=== PATIENT | female | born 2005 | race Caucasian/White ===

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

== ENCOUNTER 2023-01-26 11:15 | Emergency (ER) | payer OTHER ==
--- NOTE | 2023-01-26 11:53 | ERPHSYRPT ---
- History of Present Illness Time Seen by Provider: 01/26/23 11:48 Source: patient, family Exam Limitations: no limitations Physician History: pt is 6 months and fell onto right knee now with pain too much to bear weight. Tender on right tibia proximally and effusion present. abrasion , but pt thinks is less than 10 years since update of tetanus and will check with mom today and return if indicated. No abd pain, no bleeding or discharge or contractions. also fell on hands and left knee but these are all nontender with full ROM. and haroldo palpation. N/V intact all distall ext. Abd soft and nontender will check FHT. No peritoneal signs and gravid uterus feels normal. No discharge or bleeding. Normal Neuro exam and mental status. 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 - Review of Systems Constitutional: No Fever, No Chills Eyes: No Symptoms Ears, Nose, & Throat: No Symptoms Respiratory: No Cough, No Dyspnea Cardiac: No Chest Pain, No Edema, No Syncope Abdominal/Gastrointestinal: No Abdominal Pain, No Nausea, No Vomiting, No Diarrhea Genitourinary Symptoms: No Dysuria Musculoskeletal: Injury, Joint Pain, Joint Swelling, No Back Pain, No Neck Pain Skin: No Symptoms, No Rash Neurological: No Dizziness, No Focal Weakness, No Sensory Changes Psychological: No Symptoms Endocrine: No Symptoms Hematologic/Lymphatic: No Symptoms Immunological/Allergic: No Symptoms All Other Systems: Reviewed and Negative - Past Medical History Pertinent Past Medical History: Yes Neurological History: No Pertinent History ENT History: No Pertinent History Cardiac History: No Pertinent History Respiratory History: No Pertinent History Endocrine Medical History: No Pertinent History Musculoskeletal History: No Pertinent History GI Medical History: No Pertinent History History: No Pertinent History, Other Psycho-Social History: Attention Deficit Disorder Female Reproductive Disorders: No Pertinent History Other Medical History: SEEING DR ERICA MELENDEZ IN URINE - Past Surgical History Past Surgical History: Yes Neuro Surgical History: No Pertinent History Cardiac: No Pertinent History Respiratory: No Pertinent History Gastrointestinal: No Pertinent History Genitourinary: No Pertinent History Musculoskeletal: No Pertinent History Female Surgical History: No Pertinent History Other Surgical History: TUBES IN EARS - Social History Smoking Status: Never smoker Exposure to second hand smoke: No Drug Use: none Patient Lives Alone: No - Nursing Vital Signs Nursing Vital Signs: Initial Vital Signs Temperature 98.1 F 01/26/23 11:21 Pulse Rate 83 01/26/23 11:21 Blood Pressure 115/76 01/26/23 11:21 O2 Sat by Pulse Oximetry 99 01/26/23 11:21 Pain Scale Pain Intensity 6 - Physical Exam General Appearance: no apparent distress, alert Eyes, Ears, Nose, Throat Exam: moist mucous membranes Neck Exam: normal inspection, non-tender, supple, full range of motion Cardiovascular/Respiratory Exam: chest non-tender, normal breath sounds, regular rate/rhythm, no respiratory distress Gastrointestinal/Abdominal Exam: non-tender, guarding Back Exam: normal inspection, No vertebral tenderness Hips Exam: bilateral: non-tender, normal inspection, normal range of motion, no evidence of injury Legs Exam: bilateral leg: non-tender, normal inspection, normal range of motion, no evidence of injury Knees Exam: right knee: joint effusion, pain, soft tissue tenderness, swelling, left knee: non-tender, normal inspection, normal range of motion, no evidence of injury Ankle Exam: bilateral ankle: non-tender, normal inspection, normal range of motion, no evidence of injury Foot Exam: bilateral foot: non-tender, normal inspection, normal range of motion, no evidence of injury DTR - Lower Extremities Exam: knee (R): 2+, knee (L): 2+, ankle (R): 2+, ankle (L): 2+ Neuro/Tendon Exam: normal sensation, normal motor functions, normal tendon functions Mental Status Exam: alert, oriented x 3, cooperative Skin Exam: normal color, warm, dry SpO2 Interpretation: normal SpO2: 98 O2 Delivery: Room Air - Course Nursing assessment & vital signs reviewed: Yes - Radiology Exams Right Knee X-ray Interpretation: Reviewed by me, Teleradiologist Report (Also rad reading not certain but could be the tibial fracture so we will immobilize), Other (asking for telerad due to concern for tibial plateau fracture) Ordered Tests: Active Orders 24 hr Category Date Time Status Cold Application STAT Care 01/26/23 11:21 Active Crutches STAT Care 01/26/23 12:44 Active Heart Tones-ED STAT Care 01/26/23 12:19 Active Immobilizer STAT Care 01/26/23 12:44 Active KNEE (3 VIEWS) Stat Exams 01/26/23 11:55 Taken - Progress Progress: improved, re-examined Progress Note: 01/26/23 11:56 discussed risk from radiation/ benefit and purpose of x-ray with pt and and they understand and wish to consent and have the capacity to make this choice. . 01/26/23 12:25 FHT are 132. Counseled pt/family regarding: diagnosis, need for follow-up, rad results Medical Desision Making - Independent Historian Additional History obtained from: Spouse - Discussion of managment Care discussed with:: specialist (radiologist) Reviewed:: Test results, Need for additional workup - Departure Departure Disposition: Home Clinical Impression: Injury of ligament of right knee Condition: Good Critical Care Time: No Referrals: GISELLA WIGGINS MD [Primary Care Provider] - Follow up/PCP as directed Instructions: Tibial Plateau Fracture (DC), Knee Sprain (DC), Ligament Injuries in the Knee (DC) Additional Instructions: We are providing information on tibia fracture, although this is not definitely seen on the x-ray today, this injury can manifest later and can take time to be seen on x-ray. The initial treatment is the same as ligament injuries which you probably do have to some degree. Use the splint and crutches and keep the knee elevated also using ice intermittently and tylenol for pain. Arrange to follow-up with an Orthopedic Dr. by calling this week. Keep alert also to any pain or cramping in your stomach or bleeding down below. Remember to confirm your tetanus shot status with your mom , in case it needs to be updated from the abrasions. Return meantime if any symptoms of concern.
[2023-01-26 12:48] VITALS: O2SAT 98
--- NOTE | 2023-01-26 13:10 | XRAY ---
CLINICAL HISTORY:trauma right knee COMPARISON:None; TECHNIQUES:X-ray of the right knee showing 3 views: AP, oblique and lateral views. FINDINGS: No fracture, dislocation, or soft tissue swelling is noted. Normal bony and soft tissue densities. No lytic or sclerotic bony lesion is noted. No degenerative changes are seen. IMPRESSION: Unremarkable x-ray of the right knee. Incidental, partially visualized proximal tibia lucent line is noted. Hairline fracture cannot be excluded. Further evaluation with calf region Xrays is recommended. DISCLAIMER: A subtle bone abnormality or fracture may not be readily apparent on x-rays, thus clinical correlation and further imaging including follow up CT, MRI, or follow up x-rays are advised as needed. Electronically Signed by: Britta Guadarrama MD. (01/26/2023 12:05:25 CLASSROOM INSTRUCTIONAL AIDE)
[2023-01-26 13:27] VITALS: BP 113/74; PULSE 68
== END 2023-01-26 13:31 | disposition home or self-care (01) ==
LOC: ED 11:15
DX: S83.91XA Sprain of unspecified site of right knee, initial encounter (principal); W19.XXXA Unspecified fall, initial encounter; Z33.1 Pregnant state, incidental
CPT/HCPCS: 73562; 99283; L1830

== ENCOUNTER 2023-03-18 11:00 | Emergency (ER) | payer MEDICAID ==
[2023-03-18] MEDS ORDERED: Sodium Chloride 0.9% 1000 ML 1,000 ML IV STA (11:46)
[2023-03-18] MEDS ORDERED: Sodium Chloride 0.9% 1000 ML 1,000 ML ONE (11:48)
--- NOTE | 2023-03-18 12:21 | ERPHSYRPT ---
- History of Present Illness Source: patient Exam Limitations: no limitations Patient Subjective Stated Complaint: Dizziness/HTN-29 weeks Triage Nursing Assessment: Patient ambulated back to ED and Physician History: 17 yo WF 19 wks ([id number]) presents w nausea/vomiting earlier today accompanied by dizziness which has since resolved. Pt came to the ER from work. She denies headache/focal weakness/chest pain/dyspnea/dysuria/hem aturia/abdominal-pelvic pain/vag bleeding/vag discharge. Timing/Duration: other (6AM) Severity: mild Modifying Factors: Improves With: nothing Associated Symptoms: denies symptoms, nausea, vomiting Allergies/Adverse Reactions: venom-wasp Allergy (Verified 03/18/23 11:27) Hx Tetanus, Diphtheria Vaccination/Date Given: Yes Hx Influenza Vaccination/Date Given: No Hx Pneumococcal Vaccination/Date Given: No Travel Risk - International Travel Have you traveled outside of the country in past 3 weeks: No - Coronavirus Screening Are you exhibiting any of the following symptoms?: No Close contact with a COVID-19 positive Pt in past 14-21 Days: No - Vaccine Status Have you recieved a Covid-19 vaccination: Yes 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[facility] - Vaccination Dates Date of 2cond Vaccination (if applicable): na - Review of Systems Constitutional: No Symptoms Eyes: No Symptoms Ears, Nose, & Throat: No Symptoms Respiratory: No Symptoms Cardiac: No Symptoms Abdominal/Gastrointestinal: No Symptoms, Nausea, Vomiting Genitourinary Symptoms: No Symptoms Musculoskeletal: No Symptoms Skin: No Symptoms Neurological: No Symptoms, Dizziness Psychological: No Symptoms Endocrine: No Symptoms Hematologic/Lymphatic: No Symptoms Immunological/Allergic: No Symptoms - Past Medical History Pertinent Past Medical History: Yes Neurological History: No Pertinent History ENT History: No Pertinent History Cardiac History: No Pertinent History Respiratory History: No Pertinent History Endocrine Medical History: No Pertinent History Musculoskeletal History: No Pertinent History GI Medical History: No Pertinent History History: No Pertinent History, Other Psycho-Social History: Attention Deficit Disorder Female Reproductive Disorders: No Pertinent History Other Medical History: SEEING DR ERICA MELENDEZ IN URINE. Herpes - Past Surgical History Past Surgical History: Yes Neuro Surgical History: No Pertinent History Cardiac: No Pertinent History Respiratory: No Pertinent History Gastrointestinal: No Pertinent History Genitourinary: No Pertinent History Musculoskeletal: No Pertinent History Female Surgical History: No Pertinent History Other Surgical History: TUBES IN EARS - Social History Smoking Status: Never smoker Exposure to second hand smoke: No Drug Use: none Patient Lives Alone: No - Female History Hx Last Menstrual Period: August 21, 2023 Hx Now: Yes Gestational Age: 29 weeks - Nursing Vital Signs Nursing Vital Signs: Initial Vital Signs Temperature 96.7 F 03/18/23 11:30 Pulse Rate 77 03/18/23 11:30 Respiratory Rate 18 03/18/23 11:30 Blood Pressure 133/93 03/18/23 11:30 O2 Sat by Pulse Oximetry 99 03/18/23 11:30 Pain Scale Pain Intensity 0 Mildly hypertensive - Physical Exam General Appearance: no apparent distress Eye Exam: PERRL/EOMI, eyes nml inspection Ears, Nose, Throat Exam: normal ENT inspection, TMs normal, pharynx normal, moist mucous membranes Neck Exam: normal inspection, non-tender, supple, full range of motion, No meningismus, No mass, No Brudzinski, No Kernig's Respiratory Exam: normal breath sounds, lungs clear, airway intact Cardiovascular Exam: regular rate/rhythm, normal heart sounds, normal peripheral pulses, capillary refill <2 sec, No murmur Gastrointestinal/Abdomen Exam: soft, normal bowel sounds, No tenderness Back Exam: normal inspection, normal range of motion, No CVA tenderness, No vertebral tenderness Extremity Exam: normal inspection, normal range of motion Neurologic Exam: alert, oriented x 3, cooperative, lead cook II-XII nml as tested, normal mood/affect, nml cerebellar function, nml station & gait, sensation nml Skin Exam: normal color, warm, dry, No rash Lymphatic Exam: No adenopathy SpO2 Interpretation: normal SpO2: 98 O2 Delivery: Room Air - Course Nursing assessment & vital signs reviewed: Yes EKG Interpreted by Me: RATE (NSR/Rate 74/Normal QT-QTc/Low voltage/Non-specific Twave abnormality) Ordered Tests: Active Orders 24 hr Category Date Time Status EKG-ER Only STAT Care 03/18/23 11:47 Completed CBC W DIFF Stat Lab 03/18/23 12:20 Completed CMP Stat Lab 03/18/23 12:20 Completed TROPONIN Q4H Lab 03/18/23 12:20 Completed TROPONIN Q4H Lab 03/18/23 16:00 Ordered TROPONIN Q4H Lab 03/18/23 20:00 Ordered UA W/RFX UR CULTURE Stat Lab 03/18/23 11:48 Completed Medication Summary Discontinued Medications Generic Name Dose Route Start Last Admin Trade Name Jovan PRN Reason Stop Dose Admin Sodium Chloride 1,000 mls @ 999 mls/hr 03/18/23 11:46 03/18/23 12:50 Sodium Chloride 0.9% 1000 Ml IV 03/18/23 12:46 Infused .Q1H1M STA Infusion Sodium Chloride Confirm 03/18/23 11:48 Sodium Chloride 0.9% 1000 Ml Administered 03/18/23 11:49 Dose 1,000 mls @ ud .ROUTE .STK-MED ONE Lab/Rad Data: Laboratory Result Diagrams 03/18/23 12:20 03/18/23 12:20 Laboratory Results 03/18/23 03/18/23 03/18/23 Range/Units 12:20 12:20 12:20 WBC 9.8 (4.0-10.5) x10^3/uL RBC 3.49 L (4.1-5.4) x10^6/uL Hgb 10.7 L (12.0-16.0) g/dL Hct 32.6 L (35-47) % MCV 93.4 (78-100) fL MCH 30.7 (26-32) pg MCHC 32.8 (32-36) g/dL RDW 13.0 (11.5-14.0) % Plt Count 227 (150-450) x10^3/uL MPV 10.5 (7.5-11.0) fL Gran % 72.8 H (36.0-66.0) % Immature Gran % (Auto) 0.4 (0.00-0.4) % Nucleat RBC Rel Count 0.0 (0.00-0.1) % Eos # (Auto) 0.06 (0-0.5) x10^3/uL Immature Gran # (Auto) 0.04 H (0.00-0.03) x10^3u/L Absolute Lymphs (auto) 1.97 (1.0-4.6) x10^3/uL Absolute Monos (auto) 0.58 (0.0-1.3) x10^3/uL Absolute Nucleated RBC 0.00 (0.00-0.01) x10^3u/L Lymphocytes % 20.1 L (24.0-44.0) % Monocytes % 5.9 (0.0-12.0) % Eosinophils % 0.6 (0.00-5.0) % Basophils % 0.2 (0.0-0.4) % Absolute Granulocytes 7.12 H (1.4-6.9) x10^3/uL Basophils # 0.02 (0-0.4) x10^3/uL Sodium 136 L (137-145) mmol/L Potassium 3.6 (3.5-5.1) mmol/L Chloride 107 (98-107) mmol/L Carbon Dioxide 21 L (22-30) mmol/L Anion Gap 12.0 (5-15) MEQ/L BUN 4 L (7-17) mg/dL Creatinine 0.38 L (0.52-1.04) mg/dL Estimated GFR > 60.0 ML/MIN Glucose 79 (74-106) mg/dL Calcium 8.8 (8.4-10.2) mg/dL Total Bilirubin 0.50 (0.2-1.3) mg/dL AST 20 (14-36) U/L ALT 13 (0-35) U/L Alkaline Phosphatase 104 (38-126) U/L Troponin I < 0.012 (0.000-0.034) ng/mL Serum Total Protein 7.1 (6.3-8.2) g/dL Albumin 3.6 (3.5-5.0) g/dL Urine Color (Yellow) Urine Appearance (Clear) Urine pH (4.6-8.0) Ur Specific [place] (1.005-1.030) Urine Protein (Negative) Urine Glucose (UA) (Negative) mg/dL Urine Ketones (Negative) Urine Blood (Negative) Urine Nitrite (Negative) Urine Bilirubin (Negative) Urine Urobilinogen (0.2) mg/dL Ur Leukocyte Esterase (Negative) U Hyaline Cast (Auto) (0-2) /LPF Urine Microscopic RBC (0-5) /HPF Urine Microscopic WBC (0-5) /HPF Ur Epithelial Cells (None Seen) /HPF Urine Bacteria (None Seen) /HPF Urine Culture Reflexed (NO) 03/18/23 Range/Units 11:48 WBC (4.0-10.5) x10^3/uL RBC (4.1-5.4) x10^6/uL Hgb (12.0-16.0) g/dL Hct (35-47) % MCV (78-100) fL MCH (26-32) pg MCHC (32-36) g/dL RDW (11.5-14.0) % Plt Count (150-450) x10^3/uL MPV (7.5-11.0) fL Gran % (36.0-66.0) % Immature Gran % (Auto) (0.00-0.4) % Nucleat RBC Rel Count (0.00-0.1) % Eos # (Auto) (0-0.5) x10^3/uL Immature Gran # (Auto) (0.00-0.03) x10^3u/L Absolute Lymphs (auto) (1.0-4.6) x10^3/uL Absolute Monos (auto) (0.0-1.3) x10^3/uL Absolute Nucleated RBC (0.00-0.01) x10^3u/L Lymphocytes % (24.0-44.0) % Monocytes % (0.0-12.0) % Eosinophils % (0.00-5.0) % Basophils % (0.0-0.4) % Absolute Granulocytes (1.4-6.9) x10^3/uL Basophils # (0-0.4) x10^3/uL Sodium (137-145) mmol/L Potassium (3.5-5.1) mmol/L Chloride (98-107) mmol/L Carbon Dioxide (22-30) mmol/L Anion Gap (5-15) MEQ/L BUN (7-17) mg/dL Creatinine (0.52-1.04) mg/dL Estimated GFR ML/MIN Glucose (74-106) mg/dL Calcium (8.4-10.2) mg/dL Total Bilirubin (0.2-1.3) mg/dL AST (14-36) U/L ALT (0-35) U/L Alkaline Phosphatase (38-126) U/L Troponin I (0.000-0.034) ng/mL Serum Total Protein (6.3-8.2) g/dL Albumin (3.5-5.0) g/dL Urine Color Yellow (Yellow) Urine Appearance Clear (Clear) Urine pH 7.5 (4.6-8.0) Ur Specific [place] <=1.005 (1.005-1.030) Urine Protein Negative (Negative) Urine Glucose (UA) Negative (Negative) mg/dL Urine Ketones Negative (Negative) Urine Blood Negative (Negative) Urine Nitrite Negative (Negative) Urine Bilirubin Negative (Negative) Urine Urobilinogen 0.2 (0.2) mg/dL Ur Leukocyte Esterase Trace A (Negative) U Hyaline Cast (Auto) NONE SEEN (0-2) /LPF Urine Microscopic RBC 0-2 (0-5) /HPF Urine Microscopic WBC 3-5 (0-5) /HPF Ur Epithelial Cells Moderate A (None Seen) /HPF Urine Bacteria Few A (None Seen) /HPF Urine Culture Reflexed NO (NO) - Progress Progress Note: 03/18/23 15:35 Nursing note and vital signs reviewed No food or housing insecurities noted All lab results reviewed and shared w pt 03/18/23 15:36 1L NS bolus Serial neuro exams WNL No dizziness/nausea/vomiting/chest pain/dyspnea while in ER FHT wnl 03/18/23 15:38 Counseled pt/family regarding: lab results, diagnosis, need for follow-up Medical Desision Making - Risk of complications Low Risk: Low risk of morbidity from additional dx testing or treatment - Departure Departure Disposition: Home Clinical Impression: UTI (urinary tract infection), Nausea & vomiting, Dizziness Condition: Stable Critical Care Time: No Referrals: GISELLA WIGGINS MD [Primary Care Provider] - Follow up/PCP as directed Instructions: Hyperemesis Gravidarum (DC), Nausea and Vomiting, Adult (DC), Dizziness, Nonvertigo, (DC) Additional Instructions: Follow up with your Ob Fluids Rest Return to ER as needed Forms: Work/School Release Form Prescriptions: Nitrofurantoin Monohyd/M-Cryst [Macrobid 100 mg Capsule] 100 mg PO BID 3 Days #6 cap
[2023-03-18 12:26] LABS: Absolute Neutrophil Ct (ANC) 7.12 x10^3/uL (1.4-6.9); BASOPHIL % 0.2 % (0.0-0.4); Basophil (Absolute #) 0.02 x10^3/uL (0-0.4); Eosinophil % 0.6 % (0.00-5.0); Eosinophil (Absolute #) 0.06 x10^3/uL (0-0.5); Hematocrit 32.6 % (35-47); Hemoglobin 10.7 g/dL (12.0-16.0); IMMATURE GRAN # 0.04 x10^3u/L (0.00-0.03); IMMATURE GRAN % 0.4 % (0.00-0.4); Lymphocyte (Absolute #) 1.97 x10^3/uL (1.0-4.6); Lymphocytes % 20.1 % (24.0-44.0); Mean Cell Volume 93.4 fL (78-100); Mean Corpuscular Hemoglobin 30.7 pg (26-32); Mean Corpuscular Hgb Concent. 32.8 g/dL (32-36); Mean Platelet Volume 10.5 fL (7.5-11.0); Monocyte (Absolute #) 0.58 x10^3/uL (0.0-1.3); Monocytes % 5.9 % (0.0-12.0); Neutrophil % 72.8 % (36.0-66.0); Platelet Count 227 x10^3/uL (150-450); Red Blood Count 3.49 x10^6/uL (4.1-5.4); White Blood Count 9.8 x10^3/uL (4.0-10.5)
[2023-03-18 12:33] LABS: Appearance Clear (Clear); Bacteria Few /HPF (None Seen); Bilirubin Negative (Negative); Blood Negative (Negative); Epithelial Cells Moderate /HPF (None Seen); Glucose, Urine Negative (Negative); Hyaline Casts NONE SEEN /LPF (0-2); Ketones Negative (Negative); Leukocyte Esterase Trace (Negative); Nitrite Negative (Negative); Ph 7.5 (4.6-8.0); Protein,Urine Dip Negative (Negative); RBC 0-2 /HPF (0-5); Specific Gravity <=1.005 (1.005-1.030); Urobilinogen 0.2 mg/dL (0.2)
[2023-03-18 12:35] LABS: ADD URINE CULTURE? NO (NO)
[2023-03-18 12:38] LABS: ALBUMIN 3.6 g/dL (3.5-5.0); ALKALINE PHOSPHATASE 104 U/L (38-126); BLOOD UREA NITROGEN 4 mg/dL (7-17); CHLORIDE 107 mmol/L (98-107); Calcium 8.8 mg/dL (8.4-10.2); Carbon Dioxide 21 mmol/L (22-30); Creatinine 1 0.38 mg/dL (0.52-1.04); EST GLOMERULAR FILTRATION RATE > 60.0 ML/MIN; Glucose 79 mg/dL (74-106); Potassium 3.6 mmol/L (3.5-5.1); SGOT/AST 20 U/L (14-36); SGPT/ALT 13 U/L (0-35); SODIUM 136 mmol/L (137-145); Total Protein 7.1 g/dL (6.3-8.2)
[2023-03-18 13:02] VITALS: BP 100/74; PULSE 62
[2023-03-18 13:24] VITALS: O2SAT 98
== END 2023-03-18 13:30 | disposition home or self-care (01) ==
LOC: ED 11:00
DX: O23.42 Unspecified infection of urinary tract in pregnancy, second trimester (principal); N39.0 Urinary tract infection, site not specified; Z3A.19 19 weeks gestation of pregnancy; O21.9 Vomiting of pregnancy, unspecified; R42 Dizziness and giddiness
CPT/HCPCS: 36000; 36415; 80053; 81001; 84484; 85025; 93005; 96360; 99284

== ENCOUNTER 2023-03-20 20:39 | Observation (INO) | payer MEDICAID, OTHER ==
[2023-03-20 21:06] LABS: Appearance Clear (Clear); Bacteria Moderate /HPF (None Seen); Bilirubin Negative (Negative); Blood Negative (Negative); Epithelial Cells Moderate /HPF (None Seen); Glucose, Urine Negative (Negative); Hyaline Casts NONE SEEN /LPF (0-2); Ketones Negative (Negative); Leukocyte Esterase Trace (Negative); Nitrite Negative (Negative); Ph 7.5 (4.6-8.0); Protein,Urine Dip Negative (Negative); RBC 0-2 /HPF (0-5)
[2023-03-20 21:07] LABS: ADD URINE CULTURE? YES (NO)
[2023-03-20 21:11] VITALS: O2SAT 99
[2023-03-20 21:12] VITALS: BP 108/65; PULSE 66
[2023-03-20 21:14] LABS: Amphetamine,Urine NEGATIVE (NEGATIVE); Barbiturate,Urine NEGATIVE (NEGATIVE); Benzodiazepine,Urine NEGATIVE (NEGATIVE); Cocaine,Urine NEGATIVE (NEGATIVE); Methadone,Urine NEGATIVE (NEGATIVE); Opiate,Urine NEGATIVE (NEGATIVE); PCP,Urine NEGATIVE (NEGATIVE); THC,Urine POSITIVE (NEGATIVE)
== END 2023-03-20 22:00 | disposition home or self-care (01) ==
LOC: OB 20:39
PROVIDERS: ADMIT Obstetrics & Gynecology; ATTEND Obstetrics & Gynecology
DX: Z34.03 Encounter for supervision of normal first pregnancy, third trimester (principal); Z3A.30 30 weeks gestation of pregnancy
CPT/HCPCS: 80307; 81001; 87086

== ENCOUNTER 2023-03-28 17:54 | Observation (INO) | payer OTHER ==
[2023-03-28 18:43] VITALS: BP 129/76; PULSE 82; RESP 18; TEMP 98.5; O2SAT 98
== END 2023-03-28 19:52 | disposition home or self-care (01) ==
LOC: OB 17:54
PROVIDERS: ADMIT Obstetrics & Gynecology; ATTEND Obstetrics & Gynecology
DX: Z34.03 Encounter for supervision of normal first pregnancy, third trimester (principal); Z3A.31 31 weeks gestation of pregnancy
CPT/HCPCS: G0378; G0379

== ENCOUNTER 2023-05-18 16:16 | Observation (INO) | payer OTHER ==
[2023-05-18 17:14] LABS: Amphetamine,Urine NEGATIVE (NEGATIVE); Barbiturate,Urine NEGATIVE (NEGATIVE); Benzodiazepine,Urine NEGATIVE (NEGATIVE); Cocaine,Urine NEGATIVE (NEGATIVE); Methadone,Urine NEGATIVE (NEGATIVE); Opiate,Urine NEGATIVE (NEGATIVE); PCP,Urine NEGATIVE (NEGATIVE); THC,Urine POSITIVE (NEGATIVE)
[2023-05-18 17:53] VITALS: BP 120/80; PULSE 85; RESP 18; TEMP 98.3; O2SAT 97
== END 2023-05-18 18:15 | disposition home or self-care (01) ==
LOC: OB.NST 16:16 → EDSTATUS 16:29 → OB 16:30
PROVIDERS: ADMIT Family Medicine; ATTEND Family Medicine
DX: Z34.03 Encounter for supervision of normal first pregnancy, third trimester (principal); Z3A.38 38 weeks gestation of pregnancy
CPT/HCPCS: 80307; 83986; 84112; G0378; G0379

== ENCOUNTER 2024-02-26 09:37 | Emergency (ER) | payer OTHER ==
--- NOTE | 2024-02-26 09:41 | ERPHSYRPT ---
- History of Present Illness Time Seen by Provider: 02/26/24 09:41 Source: patient Exam Limitations: no limitations Physician History: This is a 18-year-old white female patient of Dr. Garner who drove herself to the emergency department but states she cannot get a ride home and has a chief complaint of right flank and right lower abdominal pain. She did not fall or monson ve any traumatic injury to these areas. She does states she has some urinary frequency and has had some vomiting. Patient completed treatment for a positive chlamydia in the last week. She completed all of her antibiotic medication. Patient denies chest pain. Patient denies shortness of breath. Timing/Duration: week(s) (1), worse Method of Injury: other (No injury) Quality: sharp, stabbing Back Pain Location: paraspinous muscles (Right lumbar level/flank area) Severity of Pain-Current: moderate Modifying Factors: Improves With: nothing Associated Symptoms: lower back pain Previous symptoms: no prior history, no recent treatment Allergies/Adverse Reactions: venom-wasp Allergy (Verified 02/26/24 09:50) Home Medications: Valacyclovir HCl [Valtrex] 500 mg PO DAILY 02/26/24 [History] Vilazodone HCl 10 mg PO DAILY 02/26/24 [History] Hx Tetanus, Diphtheria Vaccination/Date Given: Yes Hx Influenza Vaccination/Date Given: No Hx Pneumococcal Vaccination/Date Given: No Travel Risk - International Travel Have you traveled outside of the country in past 3 weeks: No - Emerging Infectious Disease Are you exhibiting symptoms associated with any current EIDs: No - Review of Systems Constitutional: No Symptoms Eyes: No Symptoms Ears, Nose, & Throat: No Symptoms Respiratory: No Symptoms Cardiac: No Symptoms Abdominal/Gastrointestinal: Abdominal Pain (Right lower quadrant/right suprapubic region), Nausea, Vomiting, Appetite Changes ( oral intake down), Other (States that she is unable to hold any) Musculoskeletal: Back Pain (Right lumbar level/flank pain area) Skin: No Symptoms Neurological: No Symptoms Psychological: No Symptoms Endocrine: No Symptoms Hematologic/Lymphatic: No Symptoms Immunological/Allergic: No Symptoms All Other Systems: Reviewed and Negative - Past Medical History Pertinent Past Medical History: Yes Neurological History: No Pertinent History ENT History: No Pertinent History Cardiac History: No Pertinent History Respiratory History: Asthma Endocrine Medical History: No Pertinent History, Other Musculoskeletal History: No Pertinent History GI Medical History: No Pertinent History History: No Pertinent History, Other Psycho-Social History: Attention Deficit Disorder Female Reproductive Disorders: No Pertinent History Other Medical History: Hx of hypothryoid diagnosed at beginning of , since then has resolved. Herpes - Past Surgical History Past Surgical History: Yes Neuro Surgical History: No Pertinent History Cardiac: No Pertinent History Respiratory: No Pertinent History Gastrointestinal: No Pertinent History Genitourinary: No Pertinent History Musculoskeletal: No Pertinent History Female Surgical History: No Pertinent History Other Surgical History: TUBES IN EARS - Social History Smoking Status: Current every day smoker How long have you smoked: 2 years Exposure to second hand smoke: No Drug Use: none Patient Lives Alone: No - Social Determinants of Health Will the patient participate in the screening: Yes Do you worry about a steady place to live?: No In the past 12 months,have you had to go without utilities?: No Transportation Issues: No Has anyone in your support network made you feel unsafe?: No Have you or anyone in your house had to go without enough: No - Nursing Vital Signs Nursing Vital Signs: Initial Vital Signs Temperature 98.3 F 02/26/24 09:52 Pulse Rate 60 02/26/24 09:52 Respiratory Rate 18 02/26/24 09:52 Blood Pressure 124/82 02/26/24 09:52 O2 Sat by Pulse Oximetry 99 02/26/24 09:52 Pain Scale Pain Intensity 6 - Physical Exam General Appearance: no apparent distress, alert, anxiety Eye Exam: PERRL/EOMI, eyes nml inspection Ears, Nose, Throat Exam: normal ENT inspection, moist mucous membranes Neck Exam: normal inspection, non-tender, supple, full range of motion Respiratory Exam: normal breath sounds, lungs clear, airway intact, No chest tenderness, No respiratory distress Cardiovascular Exam: regular rate/rhythm, normal heart sounds, normal peripheral pulses Gastrointestinal Exam: soft, normal bowel sounds, tenderness (Right suprapubic tenderness to palpation), guarding (Right suprapubic tenderness to palpation), No rebound Pelvic Exam: not done Rectal Exam: not done Back Exam: normal inspection, normal range of motion, CVA tenderness (Right side to percussion), No vertebral tenderness Extremity Exam: normal inspection, normal range of motion, pelvis stable Neurologic Exam: alert, oriented x 3, cooperative, 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 nml as tested, nml cerebellar function, nml station & gait, sensation nml Skin Exam: normal color, warm, dry Lymphatic Exam: No adenopathy SpO2 Interpretation: normal - Course Nursing assessment & vital signs reviewed: Yes Ordered Tests: Active Orders 24 hr Category Date Time Status IV Insertion STAT Care 02/26/24 10:10 Active ABDOMEN AND PELVIS W/0 CONTRAS [CT] Stat Exams 02/26/24 10:11 Completed AMYLASE Stat Lab 02/26/24 10:05 Completed CBC W DIFF Stat Lab 02/26/24 10:05 Completed CMP Stat Lab 02/26/24 10:05 Completed HCG QUALITATIVE, SERUM Stat Lab 02/26/24 10:05 Completed LIPASE Stat Lab 02/26/24 10:05 Completed UA W/RFX UR CULTURE Stat Lab 02/26/24 11:48 Completed Medication Summary Discontinued Medications Generic Name Dose Route Start Last Admin Trade Name Freq PRN Reason Stop Dose Admin Sodium Chloride 1,000 mls @ 999 mls/hr 02/26/24 10:10 02/26/24 11:32 Sodium Chloride 0.9% 1000 Ml IV 02/26/24 11:10 Infused .Q1H1M STA Infusion Sodium Chloride Confirm 02/26/24 10:14 Sodium Chloride 0.9% 1000 Ml Administered 02/26/24 10:15 Dose 1,000 mls @ ud .ROUTE .STK-MED ONE Ketorolac Tromethamine 30 mg 02/26/24 10:10 02/26/24 10:15 Ketorolac Tromethamine 30 Mg/Ml Inj IV 02/26/24 10:11 30 mg STAT ONE Administration Ketorolac Tromethamine Confirm 02/26/24 10:14 Ketorolac Tromethamine 30 Mg/Ml Inj Administered 02/26/24 10:15 Dose 30 mg .ROUTE .STK-MED ONE Morphine Sulfate 4 mg 02/26/24 13:03 02/26/24 13:18 Morphine Sulfate 4 Mg/Ml Injection IV 02/26/24 13:04 4 mg STAT ONE Administration Morphine Sulfate Confirm 02/26/24 13:16 Morphine Sulfate 4 Mg/Ml Injection Administered 02/26/24 13:17 Dose 4 mg .ROUTE .STK-MED ONE Ondansetron HCl 4 mg 02/26/24 10:10 02/26/24 10:15 Ondansetron Hcl 4 Mg/2 Ml Vial IV 02/26/24 10:11 4 mg STAT ONE Administration Ondansetron HCl Confirm 02/26/24 10:14 Ondansetron Hcl 4 Mg/2 Ml Vial Administered 02/26/24 10:15 Dose 4 mg .ROUTE .K-MED ONE Lab/Rad Data: Laboratory Result Diagrams 02/26/24 10:05 02/26/24 10:05 Laboratory Results 02/26/24 02/26/24 02/26/24 Range/Units 11:48 10:05 10:05 WBC (3.98-10.04) x10^3/uL RBC (3.93-5.22) x10^6/uL Hgb (11.2-15.7) g/dL Hct (34.1-44.9) % MCV (79.4-94.8) fL MCH (25.6-32.2) pg MCHC (32.2-35.5) g/dL RDW (11.7-14.4) % Plt Count (182-369) x10^3/uL MPV (9.4-12.3) fL Gran % (34.0-71.1) % Immature Gran % (Auto) (0.001-0.429) % Nucleat RBC Rel Count (0.00-0.2) % Eos # (Auto) (0.04-0.36) x10^3/uL Immature Gran # (Auto) (0.001-0.031) x10^3u/L Absolute Lymphs (auto) (1.18-3.74) x10^3/uL Absolute Monos (auto) (0.24-0.86) x10^3/uL Absolute Nucleated RBC (0.00-0.012) x10^3u/L Lymphocytes % (19.3-51.7) % Monocytes % (4.7-12.5) % Eosinophils % (0.7-5.8) % Basophils % (0.1-1.2) % Absolute Granulocytes (1.56-6.13) x10^3/uL Basophils # (0.01-0.08) x10^3/uL Sodium 141 (135-145) mmol/L Potassium 3.5 (3.5-5.1) mmol/L Chloride 109 H (98-107) mmol/L Carbon Dioxide 23 (22-30) mmol/L Anion Gap 12.4 (5-15) MEQ/L BUN 10 (7-17) mg/dL Creatinine 0.69 (0.52-1.04) mg/dL Estimated GFR 127.3 ML/MIN Glucose 93 (74-106) mg/dL Calcium 9.8 (8.4-10.2) mg/dL Total Bilirubin 2.60 H (0.2-1.3) mg/dL AST 36 (14-36) U/L ALT 43 H (0-35) U/L Alkaline Phosphatase 80 (38-126) U/L Serum Total Protein 7.5 (6.3-8.2) g/dL Albumin 4.4 (3.5-5.0) g/dL Amylase 68 (30-110) U/L Lipase 49 (23-300) U/L Serum HCG, Qual NEGATIVE (NEGATIVE) Urine Color Yellow (Yellow) Urine Appearance Clear (Clear) Urine pH 6.5 (4.6-8.0) Ur Specific [place] 1.010 (1.005-1.030) Urine Protein Negative (Negative) Urine Glucose (UA) Negative (Negative) mg/dL Urine Ketones 15 A (Negative) Urine Blood Negative (Negative) Urine Nitrite Negative (Negative) Urine Bilirubin Negative (Negative) Urine Urobilinogen 1.0 A (0.2) mg/dL Ur Leukocyte Esterase Negative (Negative) U Hyaline Cast (Auto) NONE SEEN (0-2) /LPF Urine Microscopic RBC 0-2 (0-5) /HPF Urine Microscopic WBC 0-2 (0-5) /HPF Ur Epithelial Cells Rare (None Seen) /HPF Urine Bacteria None Seen (None Seen) /HPF Urine Culture Reflexed NO (NO) 02/26/24 Range/Units 10:05 WBC 4.7 (3.98-10.04) x10^3/uL RBC 4.58 (3.93-5.22) x10^6/uL Hgb 13.3 (11.2-15.7) g/dL Hct 40.2 (34.1-44.9) % MCV 87.8 (79.4-94.8) fL MCH 29.0 (25.6-32.2) pg MCHC 33.1 (32.2-35.5) g/dL RDW 13.2 (11.7-14.4) % Plt Count 224 (182-369) x10^3/uL MPV 10.6 (9.4-12.3) fL Gran % 65.0 (34.0-71.1) % Immature Gran % (Auto) 0.2 (0.001-0.429) % Nucleat RBC Rel Count 0.0 (0.00-0.2) % Eos # (Auto) 0.09 (0.04-0.36) x10^3/uL Immature Gran # (Auto) 0.01 (0.001-0.031) x10^3u/L Absolute Lymphs (auto) 1.19 (1.18-3.74) x10^3/uL Absolute Monos (auto) 0.36 (0.24-0.86) x10^3/uL Absolute Nucleated RBC 0.00 (0.00-0.012) x10^3u/L Lymphocytes % 25.1 (19.3-51.7) % Monocytes % 7.6 (4.7-12.5) % Eosinophils % 1.9 (0.7-5.8) % Basophils % 0.2 (0.1-1.2) % Absolute Granulocytes 3.08 (1.56-6.13) x10^3/uL Basophils # 0.01 (0.01-0.08) x10^3/uL Sodium (135-145) mmol/L Potassium (3.5-5.1) mmol/L Chloride (98-107) mmol/L Carbon Dioxide (22-30) mmol/L Anion Gap (5-15) MEQ/L BUN (7-17) mg/dL Creatinine (0.52-1.04) mg/dL Estimated GFR ML/MIN Glucose (74-106) mg/dL Calcium (8.4-10.2) mg/dL Total Bilirubin (0.2-1.3) mg/dL AST (14-36) U/L ALT (0-35) U/L Alkaline Phosphatase (38-126) U/L Serum Total Protein (6.3-8.2) g/dL Albumin (3.5-5.0) g/dL Amylase (30-110) U/L Lipase (23-300) U/L Serum HCG, Qual (NEGATIVE) Urine Color (Yellow) Urine Appearance (Clear) Urine pH (4.6-8.0) Ur Specific [place] (1.005-1.030) Urine Protein (Negative) Urine Glucose (UA) (Negative) mg/dL Urine Ketones (Negative) Urine Blood (Negative) Urine Nitrite (Negative) Urine Bilirubin (Negative) Urine Urobilinogen (0.2) mg/dL Ur Leukocyte Esterase (Negative) U Hyaline Cast (Auto) (0-2) /LPF Urine Microscopic RBC (0-5) /HPF Urine Microscopic WBC (0-5) /HPF Ur Epithelial Cells (None Seen) /HPF Urine Bacteria (None Seen) /HPF Urine Culture Reflexed (NO) - Progress Progress: improved, pain not gone completely Progress Note: 02/26/24 10:37 Medical decision making and the assignment of moderate complexity to this patient's medical issue is based on review of the patient's past medical history, review the patient's medication list, review of patient drug allergy list, history present illness and physical findings on examination. The workup in this patient includes placement of intravenous line, infusion normal saline solution, infusion of Toradol, infusion of Zofran, infusion of morphine, urinalysis, urine GC/chlamydia, CBC, CMP, amylase, lipase, CT scan of the abdomen pelvis without contrast. Differential diagnosis includes but is not limited to acute appendicitis, pancreatitis, colitis, pyelonephritis, ureterolithiasis 02/26/24 12:12 The urinalysis is pending. The remainder of the laboratory data results were interpreted by me. Patient has a mildly elevated transaminase and bilirubin. The remainder of the studies show no acute, emergent medical issue at this time. CT scan of the abdomen pelvis without contrast was interpreted by the radiologist and I reviewed the interpretation. Interpretation states mild right hydronephrosis without calculus. Possible recent passage of ureteral calculus. There is evidence of cholelithiasis. There is a normal appendix. No free fluid or free air present. 02/26/24 13:21 The urinalysis was interpreted by me. There is no evidence of any urinary tract infection. Patient was mildly dehydrated. Counseled pt/family regarding: lab results, diagnosis, need for follow-up, rad results Medical Desision Making - Diagnostic Testing Diagnostic test were ordered, analyzed, and reviewed by me: Yes Radiological Interpretation: Reviewed by me, Teleradiologist Report - Risk of complications The pt has a mod risk of morbidity or mortality based on: Need for prescription drug management - Departure Departure Disposition: Home Clinical Impression: Cholelithiasis, Right flank pain Condition: Stable Critical Care Time: No Referrals: GISELLA WIGGINS MD [Primary Care Provider] - Follow up/PCP as directed Additional Instructions: Drink plenty of clear liquids before advancing your diet. Avoid fatty greasy spicy foods. Contact your primary care provider today for referral to a general surgeon to discuss management of your gallbladder/gallstones that are present. Use Tylenol and ibuprofen for pain control. Prescriptions: Ondansetron ODT 4 MG [Zofran Odt 4 mg] 4 mg PO Q6H PRN PRN #10 tablet PRN Reason: Vomiting
[2024-02-26 10:00] VITALS: TEMP 98.3
[2024-02-26] MEDS ORDERED: TORAdol 30 mg Injection ONE (10:14)
[2024-02-26] MEDS ORDERED: Zofran 4 MG/2 ML VIAL ONE (10:14)
[2024-02-26] MEDS ORDERED: Sodium Chloride 0.9% 1000 ML 1,000 ML ONE (10:14)
[2024-02-26] MEDS: Zofran 4 MG/2 ML VIAL IV ONE (10:15)
[2024-02-26] MEDS: TORAdol 30 mg Injection IV ONE (10:15)
[2024-02-26] MEDS: Sodium Chloride 0.9% 1000 ML 1,000 ML IV STA (10:16)
[2024-02-26 10:32] LABS: Absolute Neutrophil Ct (ANC) 3.08 x10^3/uL (1.56-6.13); BASOPHIL % 0.2 % (0.1-1.2); Basophil (Absolute #) 0.01 x10^3/uL (0.01-0.08); Eosinophil % 1.9 % (0.7-5.8); Eosinophil (Absolute #) 0.09 x10^3/uL (0.04-0.36); Hematocrit 40.2 % (34.1-44.9); Hemoglobin 13.3 g/dL (11.2-15.7); IMMATURE GRAN # 0.01 x10^3u/L (0.001-0.031); IMMATURE GRAN % 0.2 % (0.001-0.429); Lymphocyte (Absolute #) 1.19 x10^3/uL (1.18-3.74); Lymphocytes % 25.1 % (19.3-51.7); Mean Cell Volume 87.8 fL (79.4-94.8); Mean Corpuscular Hgb Concent. 33.1 g/dL (32.2-35.5); Mean Platelet Volume 10.6 fL (9.4-12.3); Monocyte (Absolute #) 0.36 x10^3/uL (0.24-0.86); Monocytes % 7.6 % (4.7-12.5); Platelet Count 224 x10^3/uL (182-369); Red Blood Count 4.58 x10^6/uL (3.93-5.22); Red Cell Distribution Width 13.2 % (11.7-14.4); White Blood Count 4.7 x10^3/uL (3.98-10.04)
[2024-02-26 10:44] LABS: ALBUMIN 4.4 g/dL (3.5-5.0); ANION GAP 12.4 MEQ/L (5-15); BILIRUBIN,TOTAL 2.6 mg/dL (0.2-1.3); Calcium 9.8 mg/dL (8.4-10.2); Creatinine 1 0.69 mg/dL (0.52-1.04); EST GLOMERULAR FILTRATION RATE 127.3 ML/MIN; Potassium 3.5 mmol/L (3.5-5.1); Total Protein 7.5 g/dL (6.3-8.2)
[2024-02-26 10:47] LABS: HCG SERUM TEST NEGATIVE (NEGATIVE)
--- NOTE | 2024-02-26 11:54 | XRAY ---
Indication: Right flank pain 1 week. Nausea and vomiting. Multiple contiguous axial images obtained through the abdomen and pelvis without contrast using renal stone protocol. Comparison: None Lung bases clear. Heart not enlarged. Right kidney mildly hydronephrotic without renal or ureteral calculus. No renal calculus or evidence for obstructive uropathy on the left. Noncontrasted stomach and bowel loops appear nonobstructed. Normal appendix. Gallbladder demonstrates at least 4 gallstones, largest 1.5 cm. Incidental uterine IUD and tampon in situ. No free fluid/air. Remaining liver, pancreas, spleen, adrenal glands, kidneys, ureters, bladder, uterus, and aorta are unremarkable for noncontrast exam. Osseous structures intact. No ventral or inguinal hernias. Impression: 1. Mild right renal hydronephrosis without calculus. Query recent passage of calculus. 2. Cholelithiasis better evaluated with outpatient ultrasound if clinically warranted. 3. Remaining CT abdomen/pelvis without contrast exam is negative.
[2024-02-26 13:10] LABS: Appearance Clear (Clear); Bacteria None Seen /HPF (None Seen); Bilirubin Negative (Negative); Blood Negative (Negative); Epithelial Cells Rare /HPF (None Seen); Glucose, Urine Negative (Negative); Hyaline Casts NONE SEEN /LPF (0-2); Ketones 15 (Negative); Leukocyte Esterase Negative (Negative); Nitrite Negative (Negative); Ph 6.5 (4.6-8.0); Protein,Urine Dip Negative (Negative); RBC 0-2 /HPF (0-5); WBC 0-2 /HPF (0-5)
[2024-02-26] MEDS ORDERED: MORPHINE SULFATE 4 MG INJ ONE (13:16)
[2024-02-26 13:17] LABS: ADD URINE CULTURE? NO (NO)
[2024-02-26] MEDS: MORPHINE SULFATE 4 MG INJ IV ONE (13:18)
[2024-02-26 13:22] VITALS: BP 110/63; RESP 16
[2024-02-26 14:02] LABS: CHLAMYDIA DNA NOT DETECTED (NEGATIVE); GC DNA Probe NOT DETECTED (NEGATIVE)
[2024-02-26 14:13] VITALS: PULSE 60; O2SAT 98
== END 2024-02-26 14:16 | disposition home or self-care (01) ==
LOC: ED 09:37
DX: K80.20 Calculus of gallbladder without cholecystitis without obstruction (principal); R10.9 Unspecified abdominal pain; R11.2 Nausea with vomiting, unspecified; R35.0 Frequency of micturition; Z79.899 Other long term (current) drug therapy; Z72.0 Tobacco use
CPT/HCPCS: 36000; 36415; 74176; 80053; 81001; 82150; 83690; 84703; 85025; 87491; 87591; 96374; 96375; 99284; J1885; J2270; J2405

== ENCOUNTER 2024-06-19 18:57 | Emergency (ER) | payer OTHER ==
[2024-06-19 19:41] VITALS: RESP 18; TEMP 97.2
--- NOTE | 2024-06-19 20:11 | ERPHSYRPT ---
- History of Present Illness Time Seen by Provider: 06/19/24 19:55 Source: patient Exam Limitations: no limitations Patient Subjective Stated Complaint: pt states that she woke up with a headache. pt states that headache got worse an hour ago Triage Nursing Assessment: pt ambulated into the er; pt is axo x4; c/o headache; pt states 10/10 to head; c/o N/V; pt denies injury or fall to head; pupils 3 mm and PERRL; strong conrad die sinker and pushes; skin PDW; no respiratory distress present; vitals wnl Physician History: This is a 18-year-old white female patient who arrives by private vehicle escorted by a friend whose primary care provider is Dr. Garner and has the complaint of a headache that was relatively localized to the right side this morning. However, prior to arrival, the patient states that she has global hea dache with associated vomiting. There is been no visual changes. She is mildly light sensitive. Patient has no earaches. Patient has no sore throat. Patient has no myalgias or arthralgias. Patient denies cough. She denies chest pain and she denies shortness of breath. Patient did state that the headache was the worst headache she ever had. Patient has a history of attention deficit disord er Timing/Duration: today Head Pain Location: global Severity of Pain-Max: moderate Severity of Pain-Current: moderate Recent Head Trauma: no recent headache/trauma Modifying Factors: Improves With: exposure to light Associated Symptoms: nausea/vomiting, sensitive to light, No neck pain, No stiff neck Previous symptoms: no prior history, no recent treatment Allergies/Adverse Reactions: venom-wasp Allergy (Verified 06/19/24 19:33) Home Medications: Vilazodone HCl 40 mg PO DAILY 06/19/24 [History] Hx Tetanus, Diphtheria Vaccination/Date Given: Yes Hx Influenza Vaccination/Date Given: No Hx Pneumococcal Vaccination/Date Given: No Travel Risk - International Travel Have you traveled outside of the country in past 3 weeks: No - Emerging Infectious Disease Are you exhibiting symptoms associated with any current EIDs: Yes Symptoms: Headaches/Body Aches/, Vomitting - Review of Systems Constitutional: No Symptoms Eyes: No Symptoms Ears, Nose, & Throat: No Symptoms Respiratory: No Symptoms Cardiac: No Symptoms Abdominal/Gastrointestinal: Nausea, Vomiting, No Abdominal Pain, No Diarrhea, No Appetite Changes Musculoskeletal: No Symptoms Skin: No Symptoms Neurological: Headache Psychological: No Symptoms Endocrine: No Symptoms Hematologic/Lymphatic: No Symptoms Immunological/Allergic: No Symptoms All Other Systems: Reviewed and Negative - Past Medical History Pertinent Past Medical History: Yes Neurological History: No Pertinent History ENT History: No Pertinent History Cardiac History: No Pertinent History Respiratory History: Asthma Endocrine Medical History: No Pertinent History, Other Musculoskeletal History: No Pertinent History GI Medical History: No Pertinent History History: No Pertinent History, Other Psycho-Social History: Attention Deficit Disorder Female Reproductive Disorders: No Pertinent History Other Medical History: Hx of hypothryoid diagnosed at beginning of , since then has resolved. Herpes - Past Surgical History Past Surgical History: Yes Neuro Surgical History: No Pertinent History Cardiac: No Pertinent History Respiratory: No Pertinent History Gastrointestinal: No Pertinent History Genitourinary: No Pertinent History Musculoskeletal: No Pertinent History Female Surgical History: No Pertinent History Other Surgical History: TUBES IN EARS - Female History Hx Now: No - Social History Smoking Status: Light tobacco smoker How long have you smoked: 2 years Exposure to second hand smoke: No Drug Use: none Patient Lives Alone: No - Social Determinants of Health Will the patient participate in the screening: Yes Do you worry about a steady place to live?: No Do you have any problems with any of the following?: No known problems In the past 12 months,have you had to go without utilities?: No Transportation Issues: No Has anyone in your support network made you feel unsafe?: No Have you or anyone in your house had to go without enough: No - Nursing Vital Signs Nursing Vital Signs: Initial Vital Signs Temperature 97.2 F 06/19/24 19:35 Pulse Rate 70 06/19/24 19:35 Respiratory Rate 18 06/19/24 19:35 Blood Pressure 130/83 06/19/24 19:35 O2 Sat by Pulse Oximetry 99 06/19/24 19:35 Pain Scale Pain Intensity 7 - Physical Exam General Appearance: mild distress, alert, anxiety Eye Exam: PERRL/EOMI, eyes nml inspection Ears, Nose, Throat Exam: normal ENT inspection, moist mucous membranes Neck Exam: normal inspection, non-tender, supple, full range of motion Respiratory Exam: normal breath sounds, lungs clear, airway intact, No chest tenderness, No respiratory distress Cardiovascular Exam: regular rate/rhythm, normal heart sounds, normal peripheral pulses Gastrointestinal/Abdominal Exam: soft, normal bowel sounds, No tenderness Back Exam: normal inspection, normal range of motion, No CVA tenderness, No vertebral tenderness Extremity Exam: normal inspection, normal range of motion, pelvis stable Mental Status Exam: alert, oriented x 3, cooperative falsework builder Exam: normal hearing, normal speech, PERRL, tongue midline Coordination/Gait Exam: normal gait, normal cerebellar function Motor/Sensory Exam: no motor deficit, no sensory deficit Skin Exam: normal color, warm, dry Lymphatic Exam: No adenopathy SpO2 Interpretation: normal SpO2: 99 O2 Delivery: Room Air - Course Nursing assessment & vital signs reviewed: Yes Ordered Tests: Active Orders 24 hr Category Date Time Status IV Insertion STAT Care 06/19/24 20:17 Active HEAD WITHOUT CONTRAST [CT] Stat Exams 06/19/24 20:31 Completed CBC W DIFF Stat Lab 06/19/24 20:50 Completed CMP Stat Lab 06/19/24 20:50 Completed HCG QUALITATIVE, SERUM Stat Lab 06/19/24 20:50 Completed MONO SCREEN Stat Lab 06/19/24 20:00 Completed UA W/RFX UR CULTURE Stat Lab 06/19/24 21:39 Completed Medication Summary Discontinued Medications Generic Name Dose Route Start Last Admin Trade Name Freq PRN Reason Stop Dose Admin Sodium Chloride 1,000 mls @ 999 mls/hr 06/19/24 20:30 06/19/24 21:48 Sodium Chloride 0.9% 1000 Ml IV 06/19/24 21:30 Infused .Q1H1M STA Infusion Sodium Chloride Confirm 06/19/24 20:34 Sodium Chloride 0.9% 1000 Ml Administered 06/19/24 20:35 Dose 1,000 mls @ ud .ROUTE .STK-MED ONE Ondansetron HCl 4 mg 06/19/24 20:31 06/19/24 20:36 Ondansetron Hcl 4 Mg/2 Ml Vial IV 06/19/24 20:32 4 mg STAT ONE Administration Ondansetron HCl Confirm 06/19/24 20:34 Ondansetron Hcl 4 Mg/2 Ml Vial Administered 06/19/24 20:35 Dose 4 mg .ROUTE .STK-MED ONE Lab/Rad Data: Laboratory Result Diagrams 06/19/24 20:50 06/19/24 20:50 Laboratory Results 06/19/24 06/19/24 06/19/24 Range/Units 21:39 20:50 20:50 WBC (3.98-10.04) x10^3/uL RBC (3.93-5.22) x10^6/uL Hgb (11.2-15.7) g/dL Hct (34.1-44.9) % MCV (79.4-94.8) fL MCH (25.6-32.2) pg MCHC (32.2-35.5) g/dL RDW (11.7-14.4) % Plt Count (182-369) x10^3/uL MPV (9.4-12.3) fL Gran % (34.0-71.1) % Immature Gran % (Auto) (0.001-0.429) % Nucleat RBC Rel Count (0.00-0.2) % Eos # (Auto) (0.04-0.36) x10^3/uL Immature Gran # (Auto) (0.001-0.031) x10^3u/L Absolute Lymphs (auto) (1.18-3.74) x10^3/uL Absolute Monos (auto) (0.24-0.86) x10^3/uL Absolute Nucleated RBC (0.00-0.012) x10^3u/L Lymphocytes % (19.3-51.7) % Monocytes % (4.7-12.5) % Eosinophils % (0.7-5.8) % Basophils % (0.1-1.2) % Absolute Granulocytes (1.56-6.13) x10^3/uL Basophils # (0.01-0.08) x10^3/uL Sodium (135-145) mmol/L Potassium (3.5-5.1) mmol/L Chloride (98-107) mmol/L Carbon Dioxide (22-30) mmol/L Anion Gap (5-15) MEQ/L BUN (7-17) mg/dL Creatinine (0.52-1.04) mg/dL Estimated GFR ML/MIN Glucose (74-106) mg/dL Calcium (8.4-10.2) mg/dL Total Bilirubin (0.2-1.3) mg/dL AST (14-36) U/L ALT (0-35) U/L Alkaline Phosphatase (38-126) U/L Serum Total Protein (6.3-8.2) g/dL Albumin (3.5-5.0) g/dL Serum HCG, Qual NEGATIVE (NEGATIVE) Urine Color Yellow (Yellow) Urine Appearance Clear (Clear) Urine pH 6.0 (4.6-8.0) Ur Specific [place] 1.015 (1.005-1.030) Urine Protein Trace A (Negative) Urine Glucose (UA) Negative (Negative) mg/dL Urine Ketones Negative (Negative) Urine Blood Negative (Negative) Urine Nitrite Negative (Negative) Urine Bilirubin Negative (Negative) Urine Urobilinogen 0.2 (0.2) mg/dL Ur Leukocyte Esterase Negative (Negative) U Hyaline Cast (Auto) NONE SEEN (0-2) /LPF Urine Microscopic RBC 0-2 (0-5) /HPF Urine Microscopic WBC 0-2 (0-5) /HPF Ur Epithelial Cells Rare (None Seen) /HPF Urine Bacteria Rare A (None Seen) /HPF Urine Culture Reflexed NO (NO) Monoscreen (NEGATIVE) Influenza Type A Ag NEGATIVE (NEGATIVE) Influenza Type B Ag NEGATIVE (NEGATIVE) RSV (PCR) NEGATIVE (NEGATIVE) SARS-CoV-2 (PCR) NEGATIVE (NEGATIVE) 06/19/24 06/19/24 06/19/24 Range/Units 20:50 20:50 20:00 WBC 10.1 H (3.98-10.04) x10^3/uL RBC 4.42 (3.93-5.22) x10^6/uL Hgb 13.2 (11.2-15.7) g/dL Hct 40.6 (34.1-44.9) % MCV 91.9 (79.4-94.8) fL MCH 29.9 (25.6-32.2) pg MCHC 32.5 (32.2-35.5) g/dL RDW 13.2 (11.7-14.4) % Plt Count 225 (182-369) x10^3/uL MPV 10.0 (9.4-12.3) fL Gran % 74.0 H (34.0-71.1) % Immature Gran % (Auto) 0.3 (0.001-0.429) % Nucleat RBC Rel Count 0.0 (0.00-0.2) % Eos # (Auto) 0.14 (0.04-0.36) x10^3/uL Immature Gran # (Auto) 0.03 (0.001-0.031) x10^3u/L Absolute Lymphs (auto) 1.92 (1.18-3.74) x10^3/uL Absolute Monos (auto) 0.50 (0.24-0.86) x10^3/uL Absolute Nucleated RBC 0.00 (0.00-0.012) x10^3u/L Lymphocytes % 19.1 L (19.3-51.7) % Monocytes % 5.0 (4.7-12.5) % Eosinophils % 1.4 (0.7-5.8) % Basophils % 0.2 (0.1-1.2) % Absolute Granulocytes 7.44 H (1.56-6.13) x10^3/uL Basophils # 0.02 (0.01-0.08) x10^3/uL Sodium 142 (135-145) mmol/L Potassium 3.5 (3.5-5.1) mmol/L Chloride 106 (98-107) mmol/L Carbon Dioxide 23 (22-30) mmol/L Anion Gap 16.7 H (5-15) MEQ/L BUN 15 (7-17) mg/dL Creatinine 0.78 (0.52-1.04) mg/dL Estimated GFR 111.4 ML/MIN Glucose 118 H (74-106) mg/dL Calcium 9.4 (8.4-10.2) mg/dL Total Bilirubin 1.30 (0.2-1.3) mg/dL AST 22 (14-36) U/L ALT 17 (0-35) U/L Alkaline Phosphatase 92 (38-126) U/L Serum Total Protein 7.6 (6.3-8.2) g/dL Albumin 4.7 (3.5-5.0) g/dL Serum HCG, Qual (NEGATIVE) Urine Color (Yellow) Urine Appearance (Clear) Urine pH (4.6-8.0) Ur Specific [place] (1.005-1.030) Urine Protein (Negative) Urine Glucose (UA) (Negative) mg/dL Urine Ketones (Negative) Urine Blood (Negative) Urine Nitrite (Negative) Urine Bilirubin (Negative) Urine Urobilinogen (0.2) mg/dL Ur Leukocyte Esterase (Negative) U Hyaline Cast (Auto) (0-2) /LPF Urine Microscopic RBC (0-5) /HPF Urine Microscopic WBC (0-5) /HPF Ur Epithelial Cells (None Seen) /HPF Urine Bacteria (None Seen) /HPF Urine Culture Reflexed (NO) Monoscreen NEGATIVE (NEGATIVE) Influenza Type A Ag (NEGATIVE) Influenza Type B Ag (NEGATIVE) RSV (PCR) (NEGATIVE) SARS-CoV-2 (PCR) (NEGATIVE) - Progress Progress: improved, re-examined Air Movement: good Progress Note: 06/19/24 20:53 My medical decision making and the assignment of moderate complexity to this patient's medical issue today is based on review of the patient's past medical history, review the patient's medication list, reviewed patient drug allergy list, history present illness and physical findings on examination. The workup in this patient includes IV placement, infusion of crystalloid solution, infusion of Zofran intravenously, CBC, CMP, test, urinalysis, viral swabs, monotest, CT scan of the head. Differential diagnosis includes but is not limited to , dehydration, urinary tract infection, acute intracranial abnormality, viral illness 06/19/24 21:31 CT scan of the head without contrast was interpreted by the radiologist and I reviewed the impression. The impression states normal head CT scan without contrast 06/19/24 22:19 I interpreted the laboratory data results. Based on the laboratory data results, the patient does not have any acute, emergent medical issue. Blood Culture(s) Obtained: Yes Antibiotics given: No Counseled pt/family regarding: lab results, diagnosis, need for follow-up, rad results Medical Desision Making - Independent Historian Additional History obtained from: Relative/friend - Diagnostic Testing Diagnostic test were ordered, analyzed, and reviewed by me: Yes Radiological Interpretation: Reviewed by me, Teleradiologist Report - Risk of complications Low Risk: Low risk of morbidity from additional dx testing or treatment - Departure Departure Disposition: Home Clinical Impression: Headache Condition: Stable Critical Care Time: No Referrals: GISELLA WIGGINS MD [Primary Care Provider] - Follow up/PCP as directed Additional Instructions: Drink plenty of fluids. Use Tylenol and ibuprofen for pain control. Call your primary care provider on 06/22/2024 to make arrangements for follow-up appointment for further evaluation management
[2024-06-19] MEDS ORDERED: Zofran 4 MG/2 ML VIAL ONE (20:34)
[2024-06-19] MEDS ORDERED: Sodium Chloride 0.9% 1000 ML 1,000 ML ONE (20:34)
[2024-06-19] MEDS: Zofran 4 MG/2 ML VIAL IV ONE (20:36)
[2024-06-19] MEDS: Sodium Chloride 0.9% 1000 ML 1,000 ML IV STA (20:36)
[2024-06-19 20:56] LABS: Absolute Neutrophil Ct (ANC) 7.44 x10^3/uL (1.56-6.13); BASOPHIL % 0.2 % (0.1-1.2); Basophil (Absolute #) 0.02 x10^3/uL (0.01-0.08); Eosinophil % 1.4 % (0.7-5.8); Eosinophil (Absolute #) 0.14 x10^3/uL (0.04-0.36); Hematocrit 40.6 % (34.1-44.9); Hemoglobin 13.2 g/dL (11.2-15.7); IMMATURE GRAN # 0.03 x10^3u/L (0.001-0.031); IMMATURE GRAN % 0.3 % (0.001-0.429); Lymphocyte (Absolute #) 1.92 x10^3/uL (1.18-3.74); Lymphocytes % 19.1 % (19.3-51.7); Mean Cell Volume 91.9 fL (79.4-94.8); Mean Corpuscular Hemoglobin 29.9 pg (25.6-32.2); Mean Corpuscular Hgb Concent. 32.5 g/dL (32.2-35.5); Platelet Count 225 x10^3/uL (182-369); Red Blood Count 4.42 x10^6/uL (3.93-5.22); Red Cell Distribution Width 13.2 % (11.7-14.4); White Blood Count 10.1 x10^3/uL (3.98-10.04)
[2024-06-19 21:08] LABS: ALBUMIN 4.7 g/dL (3.5-5.0); ANION GAP 16.7 MEQ/L (5-15); BILIRUBIN,TOTAL 1.3 mg/dL (0.2-1.3); Calcium 9.4 mg/dL (8.4-10.2); Creatinine 1 0.78 mg/dL (0.52-1.04); EST GLOMERULAR FILTRATION RATE 111.4 ML/MIN; Potassium 3.5 mmol/L (3.5-5.1); Total Protein 7.6 g/dL (6.3-8.2)
[2024-06-19 21:10] LABS: HCG SERUM TEST NEGATIVE (NEGATIVE)
[2024-06-19 21:32] LABS: INFLUENZA A NEGATIVE (NEGATIVE); INFLUENZA B NEGATIVE (NEGATIVE); RESPIRATORY SYNCTIAL VIRUS NEGATIVE (NEGATIVE); SARS-CoV-2 Xpert Express NEGATIVE (NEGATIVE)
[2024-06-19 21:57] LABS: Appearance Clear (Clear); Bacteria Rare /HPF (None Seen); Bilirubin Negative (Negative); Blood Negative (Negative); Epithelial Cells Rare /HPF (None Seen); Glucose, Urine Negative (Negative); Hyaline Casts NONE SEEN /LPF (0-2); Ketones Negative (Negative); Leukocyte Esterase Negative (Negative); Nitrite Negative (Negative); Protein,Urine Dip Trace (Negative); RBC 0-2 /HPF (0-5); Specific Gravity 1.015 (1.005-1.030); Urobilinogen 0.2 mg/dL (0.2); WBC 0-2 /HPF (0-5)
[2024-06-19 22:03] VITALS: BP 116/72; PULSE 62
--- NOTE | 2024-06-19 22:11 | XRAY ---
Indication: Headache with vomiting. Multiple contiguous axial images obtained without contrast. Comparison: None Normal appearing brain parenchyma, ventricles, and bony calvarium. Visualized paranasal sinuses and mastoid air cells are clear. Impression: Normal CT head without contrast exam.
[2024-06-19 22:20] VITALS: O2SAT 99
== END 2024-06-19 22:28 | disposition home or self-care (01) ==
LOC: ED 18:57
DX: R51.9 Headache, unspecified (principal); R11.2 Nausea with vomiting, unspecified; Z79.899 Other long term (current) drug therapy; Z72.0 Tobacco use
CPT/HCPCS: 0241U; 36000; 36415; 70450; 80053; 81001; 84703; 85025; 86308; 96360; 96374; 99284; J2405